=== PATIENT | female | born 1940 | race Caucasian/White ===

== ENCOUNTER 2021-11-15 12:50 | Outpatient (CLI) | payer MEDICARE, OTHER | END 2021-11-15 12:51 | disposition EMS.NT | LOC: EMS 12:50 | DX: R53.1 Weakness (principal); R82.90 Unspecified abnormal findings in urine ==

== ENCOUNTER 2021-11-15 13:55 | Inpatient (IN) | payer MEDICARE, OTHER ==
--- NOTE | 2021-11-15 14:24 | ED Physician Documentation ---
PD HPI DYSPNEA - Stated complaint Stated Complaint: DARK URINELEG SWELLING - Chief complaint Chief Complaint: Resp - History obtained from History obtained from: Patient - History of Present Illness Timing - onset: How many days ago (several days to a week of dyspnea, orthopnea, inceasing edema, and general weakness. Has some ZIEGLER for months but not the edema.) Timing - onset during: Light activity Timing - duration: Days Timing - details: Gradual onset, Still present Inciting event(s): Other (previously on metoprolol for atrial fib. Stopped it 6 months ago as HR controlled. Moved from [place] to [facility] 6 months ago and has not had refill of meds. No prior diuretics.). No: Out of meds Improved by: Rest, Sitting up Worsened by: Exertion, Laying flat Associated symptoms: Palpitations (feeling heart rate fast intermittently.), Bilateral edema. No: Fever, Cough, Chest pain / discomfort, Unilateral edema Recently seen: Not recently seen (has not gotten new primary care since moving to [facility] 6 months ago.) Review of Systems Constitutional: denies: Fever, Chills Nose: denies: Rhinorrhea / runny nose, Congestion Throat: denies: Sore throat Cardiac: reports: Palpitations, Pedal edema (for the past week or so). denies: Chest pain / pressure, Calf pain Respiratory: reports: Dyspnea (progressive the past month). denies: Cough GI: denies: Abdominal Pain, Nausea, Vomiting, Diarrhea, Bloody / black stool : denies: Dysuria Skin: denies: Rash Neurologic: reports: Generalized weakness. denies: Near syncope PD PAST MEDICAL HISTORY - Past Medical History Cardiovascular: Coronary artery disease (with 2 stents placed in 2014 at [facility] in [facility] before she moved to [place]. ), Atrial fibrillation Respiratory: None Neuro: None Endocrine/Autoimmune: None GI: None - Past Surgical History Cardiovascular: Coronary stent - Allergies Allergies/Adverse Reactions: Allergies Allergy/AdvReac Type Severity Reaction Status Date / Time Penicillins Allergy Unknown Verified 11/15/21 14:07 povidone-iodine Allergy Rash Verified 11/15/21 14:07 [From Betadine] - Living Situation Living Situation: reports: With family (she has lived with her daughter for 6 months. Pt states her daughter has high salt foods in house. ) Living Arrangement: reports: At home - Social History Does the pt smoke?: No Does the pt drink ETOH?: No Does the pt have substance abuse?: No - Family History Family history: reports: CAD - POLST Patient has POLST: No PD ED PE NORMAL - Vitals Vital signs reviewed: Yes (fast and irregular heart rate. ) - General General: Alert and oriented X 3, Well developed/nourished, Other (appears anxious and with tachypnea, wanting to sit upright for breathing. ) - HEENT HEENT: Atraumatic, Pharynx benign - Neck Neck: Supple, no meningeal sign, No adenopathy, No bruit, Other (JVD noted at 60 degrees. Patient most comfortable sitting upright. ) - Cardiac Cardiac: No: RRR (irregular and tachycardic 130s. ) - Respiratory Respiratory: No: Clear bilaterally (fine crackles both lung fierro 1/[address] up. No coarse sounds. ) - Abdomen Abdomen: Soft, Non tender - Back Back: No CVA TTP - Derm Derm: Normal color, Warm and dry - Extremities Extremities: No tenderness to palpate, Normal ROM s pain, Other (2+ edema in both lower legs up to the knees. No redness. ) - Neuro Neuro: Alert and oriented X 3, No motor deficit, Normal speech Results - Vitals Vitals: Vital Signs - 24 hr 11/15/21 11/15/21 11/15/21 14:00 15:23 17:00 Temperature 36.4 C L Heart Rate 124 H 100 87 Respiratory 28 H 22 29 H Rate Blood Pressure 118/98 H 128/98 H 152/109 H O2 Saturation 97 97 96 Oxygen O2 Source Room air - EKG (time done) 14:55 Rate: Rate (enter#) (126) Rhythm: Atrial fibrillation Intervals: LBBB Ischemia: ST elevation c/w repol Compare to prior EKG: Old EKG unavailable 15:36 Rate: Rate (enter#) (80) Rhythm: NSR Intervals: LBBB Ischemia: ST elevation c/w repol, Non specific changes Compare to prior EKG: Changed from prior EKG (converted to NSR) - Labs Labs: Laboratory Tests 11/15/21 11/15/21 11/15/21 15:04 15:04 15:04 WBC 8.4 RBC 5.53 H Hgb 14.3 Hct 45.6 MCV 82.5 MCH 25.9 L MCHC 31.4 L RDW 17.1 H Plt Count 248 MPV 10.4 Neut # (Auto) 6.6 Lymph # (Auto) 1.3 L Reynolds # (Auto) 0.4 Eos # (Auto) 0.1 Baso # (Auto) 0.0 Absolute Nucleated RBC 0.00 Nucleated RBC % 0.0 Sodium 136 Potassium 3.8 Chloride 100 L Carbon Dioxide 22 Anion Gap 14.0 H BUN 27 H Creatinine 1.3 H Estimated GFR (MDRD) 39 L Glucose 211 H Calcium 9.0 Magnesium 2.5 Total Bilirubin 1.5 H AST 28 ALT 26 Alkaline Phosphatase 16 L Troponin I High Sens 59.9 H* B-Natriuretic Peptide Total Protein 6.9 Albumin 3.9 Globulin 3.0 Albumin/Globulin Ratio 1.3 Lipase 26 TSH Urine Color Urine Clarity Urine pH Ur Specific [place] Urine Protein Urine Glucose (UA) Urine Ketones Urine Occult Blood Urine Nitrite Urine Bilirubin Urine Urobilinogen Ur Leukocyte Esterase Urine RBC Urine WBC Ur Squamous Epith Cells Urine Bacteria Ur Microscopic Review Urine Culture Comments 11/15/21 11/15/21 11/15/21 15:04 15:04 16:19 WBC RBC Hgb Hct MCV MCH MCHC RDW Plt Count MPV Neut # (Auto) Lymph # (Auto) Reynolds # (Auto) Eos # (Auto) Baso # (Auto) Absolute Nucleated RBC Nucleated RBC % Sodium Potassium Chloride Carbon Dioxide Anion Gap BUN Creatinine Estimated GFR (MDRD) Glucose Calcium Magnesium Total Bilirubin AST ALT Alkaline Phosphatase Troponin I High Sens B-Natriuretic Peptide 2964 H Total Protein Albumin Globulin Albumin/Globulin Ratio Lipase TSH 3.84 Urine Color YELLOW Urine Clarity HAZY Urine pH 5.0 Ur Specific [place] 1.025 Urine Protein 30 H Urine Glucose (UA) NEGATIVE Urine Ketones NEGATIVE Urine Occult Blood TRACE-INTA Urine Nitrite POSITIVE H Urine Bilirubin NEGATIVE Urine Urobilinogen 0.2 (NORMAL) Ur Leukocyte Esterase NEGATIVE Urine RBC 0-5 Urine WBC 6-10 H Ur Squamous Epith Cells NONE SEEN Urine Bacteria Many H Ur Microscopic Review INDICATED Urine Culture Comments INDICATED 11/15/21 16:31 WBC RBC Hgb Hct MCV MCH MCHC RDW Plt Count MPV Neut # (Auto) Lymph # (Auto) Reynolds # (Auto) Eos # (Auto) Baso # (Auto) Absolute Nucleated RBC Nucleated RBC % Sodium Potassium Chloride Carbon Dioxide Anion Gap BUN Creatinine Estimated GFR (MDRD) Glucose Calcium Magnesium Total Bilirubin AST ALT Alkaline Phosphatase Troponin I High Sens 65.7 H* B-Natriuretic Peptide Total Protein Albumin Globulin Albumin/Globulin Ratio Lipase TSH Urine Color Urine Clarity Urine pH Ur Specific [place] Urine Protein Urine Glucose (UA) Urine Ketones Urine Occult Blood Urine Nitrite Urine Bilirubin Urine Urobilinogen Ur Leukocyte Esterase Urine RBC Urine WBC Ur Squamous Epith Cells Urine Bacteria Ur Microscopic Review Urine Culture Comments - Rads (name of study) chest xray Radiology: Prelim report reviewed (interstitial changes c/w CHF), See rad report PD MEDICAL DECISION MAKING - ED course Complexity details: reviewed results, re-evaluated patient (improved breathing and symptoms with heart rate control and diuresis initiated. HR now 80s NSR.), considered differential, d/w patient, d/w technology consultant (Dr. Mcmahon, Cardiology livestock auctioneer [facility] - who said he would advise beta tessa, diuretic and OBS, with ECHO tomorrow. If EF<40%, then call them for advise/possible transfer. If >40-45%, then outpatient meds betablocker/diuretic, DOAC, and Cardiology outpt.) - Critical Care Time(min): 30 Comments: Had fast heart rate atrial fibrillation. Her oxygenation was good but had significant respiratory distress with some work of breathing and upright sitting. IV medications given for heart rate control and acute diuresis. Time Includes: Direct patient care, Document care, Coordinate care Data interpretation: Labs, Pulse ox, CXR Procedures excluded from critical care time: EKG Departure - Departure Disposition: ED Place in Observation Clinical Impression: Paroxysmal atrial fibrillation with rapid ventricular response, New onset of congestive heart failure Dyspnea Qualifiers: Dyspnea type: orthopnea Qualified Code(s): R06.01 - Orthopnea Condition: Stable Record reviewed to determine appropriate education?: Yes Follow-Up: Braulio Duncan MD [Physician No Access] -
[2021-11-15] MEDS ORDERED: FUROSEMIDE 40 MG/4 ML VIAL IVP STA (14:51)
[2021-11-15] MEDS ORDERED: METOPROLOL 5 MG/5 ML VIAL IVP STA (14:55)
[2021-11-15 15:08] LABS: BASOPHILS % (AUTO) 0.4 %; EOSINOPHILS # (AUTO) 0.1 10^3/uL (0.0-0.7); EOSINOPHILS % (AUTO) 0.8 %; HCT - HEMATOCRIT 45.6 % (37.0-47.0); HGB - HEMOGLOBIN 14.3 g/dL (12.0-16.0); LYMPHOCYTES # (AUTO) 1.3 10^3/uL (1.5-3.5); LYMPHOCYTES % (AUTO) 15.5 %; MEAN CORPUSCULAR HEMOGLOBIN 25.9 pg (27.0-31.0); MEAN CORPUSCULAR HGB CONC 31.4 g/dL (32.0-36.0); MEAN CORPUSCULAR VOLUME 82.5 fL (81.0-99.0); MEAN PLATELET VOLUME 10.4 fL (7.9-10.8); MONOCYTES # (AUTO) 0.4 10^3/uL (0.0-1.0); MONOCYTES % (AUTO) 4.8 %; NEUTROPHILS # (AUTO) 6.6 10^3/uL (1.5-6.6); PLT - PLATELET COUNT 248 10^3/uL (130-450); RED BLOOD COUNT 5.53 10^6/uL (4.20-5.40); RED CELL DISTRIBUTION WIDTH 17.1 % (12.0-15.0); WHITE BLOOD COUNT 8.4 x10^3/uL (4.8-10.8)
--- NOTE | 2021-11-15 15:28 | XRAY Report ---
PROCEDURE: Chest 1 View X-Ray INDICATIONS: Chest pain. TECHNIQUE: One view of the chest was acquired. COMPARISON: None FINDINGS: Surgical changes and devices: None. Lungs and pleura: Bilateral interstitial prominence. No focal consolidation or pleural effusion. No pneumothorax. Lungs are clear. Mediastinum: Mediastinal contours appear normal. Heart size is normal. Moderate aortic calcificati on. Bones and chest wall: No suspicious bony lesions. Overlying soft tissues appear unremarkable. IMPRESSION: 1. Bilateral interstitial prominence may be secondary to mild pulmonary edema or chronic interstitial lung disease. Reviewed by: Renee Campos MD on 11/15/2021 3:27 PM PST Approved by: Renee Campos MD on 11/15/2021 3:27 PM PST Station ID: [id number]
[2021-11-15 15:31] LABS: ALBUMIN 3.9 g/dL (3.2-5.5); ALBUMIN/GLOBULIN RATIO 1.3 (1.0-2.2); BILIRUBIN,TOTAL 1.5 mg/dL (0.2-1.0); CREATININE 1.3 mg/dL (0.4-1.0); MAGNESIUM 2.5 mg/dL (1.7-2.8); POTASSIUM 3.8 mmol/L (3.5-5.0); TOTAL PROTEIN 6.9 g/dL (6.7-8.2)
[2021-11-15 16:28] LABS: BILIRUBIN,URINE NEGATIVE (NEGATIVE); GLUCOSE, URINE (UA) NEGATIVE (NEGATIVE); KETONES,URINE (UA) NEGATIVE (NEGATIVE); LEUKOCYTE ESTERASE, URINE NEGATIVE (NEGATIVE); NITRITE,URINE POSITIVE (NEGATIVE); OCCULT BLOOD,URINE TRACE-INTA (NEGATIVE); PROTEIN,URINE 30 mg/dL (NEGATIVE); UROBILINOGEN,URINE 0.2 (NORMAL) E.U./dL (NORMAL)
[2021-11-15 16:33] LABS: CLARITY,URINE HAZY (CLEAR)
[2021-11-15 16:43] LABS: BACTERIA,URINE Many /HPF (None Seen); RBC,URINE 0-5 /HPF (0-5); SQUAMOUS EPITHELIAL CELL,UR NONE SEEN (<= Few)
[2021-11-15] MEDS ORDERED: METOPROLOL SUCCINATE 25 MG TABLET PO STA (17:28)
[2021-11-15] MEDS ORDERED: ASPIRIN CHEW 81 MG TABLET PO STA (17:28)
[2021-11-15 17:38] LABS: B. PARAPERTUSSIS- RESP PCR PAN NOT DETECTED; B. PERTUSSIS- RESP PCR PANEL NOT DETECTED; C. PNEUMONIAE- RESP PCR PANEL NOT DETECTED; CORONAVIRUS 229E-RESP PCR NOT DETECTED; CORONAVIRUS HKU1-RESP PCR NOT DETECTED; CORONAVIRUS NL63-RESP PCR NOT DETECTED; CORONAVIRUS OC43-RESP PCR NOT DETECTED; HUMAN METAPNEUMOVIRUS NOT DETECTED; INFLUENZA A- RESP PCR PANEL NOT DETECTED; INFLUENZA B - RESP PCR PANEL NOT DETECTED; M. PNEUMONIAE- RESP PCR PANEL NOT DETECTED; PARAINFLUENZA VIRUS 1 NOT DETECTED; PARAINFLUENZA VIRUS 2 NOT DETECTED; PARAINFLUENZA VIRUS 3 NOT DETECTED; PARAINFLUENZA VIRUS 4 NOT DETECTED; RHINOVIRUS/ENTEROVIRUS NOT DETECTED; RSV- RESP PCR PANEL NOT DETECTED; SARS-CoV-2 -RESP PCR PANEL NOT DETECTED
--- NOTE | 2021-11-15 20:14 | HISTORY & PHYSICAL EXAMINATION ---
Chief Complaint - Chief Complaint Chief Complaint: SOB, leg edema, palpitations History of Present Illness - Admitted From Admitted From:: ED - History Obtained From History obtained from: ED provider and the patient - History of Present Illness HPI Comment/Other: This is an 81 y/o female, who moved from [place] to [facility] to live with her daughter 6 mos ago. She has not yet established with a PCP. She has a Hx of coronary artery disease (with 2 stents placed in 2014 at [facility] in [facility], by Dr Dorantes, before she moved to [place]. ). Mikael also has a history of paroxysmal Afib and used to be on Metoprolol, but said her last PCP stopped it 6 mos ago. She only takes 1 baby aspirin daily. Over the past 2 mos, she has felt intermittent rapid palpitations and has progressively worsening SOB with activity. Over the past 2-3 days she is also orthopneic and has new leg edema, bad enough that she cannot bend her knees, and therefore she presented to the ED. She reported that her diet, made by her daughter, contains alot of salt. She denies any chest pain, cough or fever. There is no pain in her legs. She was given IV Lasix and started to have diuresis and says she feels slightly better. She was also found to be in A. fib with RVR at a rate of 120. We discussed her CODE BLUE wishes and she wants to be a Full Code. History - Past Medical History Cardiovascular: reports: Coronary artery disease (with 2 stents placed in 2014 at [facility] in [facility] before she moved to [place]. 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 Pt states her daughter has high salt foods in house. ) Social History Notes: She has 3 daughters who she raised alone. The oldest is in [place], the second is in [place], with whom she lived for 5 years to help her, then she moved back in with her youngest daughter here 6 months ago, to help her financially through a divorce. She reports that she gets no help from the daughter or granddaughter (13 y/o) and wants to move out of that house. She never smoked cigarettes, drinks no alcohol, and no drug use. - Substance History Use: Uses substance without health or social issues: NONE - POLST Patient has POLST: No Meds/Allgy - Allergies Allergies/Adverse Reactions: Allergies Allergy/AdvReac Type Severity Reaction Status Date / Time Penicillins Allergy Unknown Verified 11/15/21 14:07 povidone-iodine Allergy Rash Verified 11/15/21 14:07 [From Betadine] Review of Systems - Constitutional Constitutional: reports: Weakness - Cardiovascular Cariovascular: reports: Palpitations, Edema, Orthopnea - Respiratory Respiratory: reports: SOB at rest, SOB with exertion - All Other Systems All Other Systems: reports: Reviewed and negative Exam - Vital Signs Vital Signs: Vital Signs x48h Temp Pulse Pulse Resp BP BP Pulse Ox 11/15/21 19:19 36.6 C 81 22 132/93 H 98 11/15/21 19:00 69 25 H 136/87 H 96 11/15/21 17:00 87 29 H 152/109 H 96 11/15/21 15:23 100 22 128/98 H 97 11/15/21 14:00 36.4 C L 124 H 28 H 118/98 H 97 - Physical Exam General Appearance: positive: No acute distress, Alert Eyes Bilateral: positive: Normal inspection, EOMI ENT: positive: No signs of dehydration, Other (Her voice is hoarse and tremulous) Neck: positive: Nml inspection, No JVD Respiratory: positive: Rales (At both lower bases) Cardiovascular: positive: Regular rate & rhythm, No murmur Abdomen: positive: Non-tender, Nml bowel sounds, No distention Skin: positive: Warm, Dry Extremities: positive: Non-tender, Other (4+ edema to the posterior thighs) Neurologic/Psychiatric: positive: Oriented x3, Other (She has a tremor of her voice and an intentional tremor of her hands.) Conclusion/Plan - Problem List (1) Paroxysmal atrial fibrillation with rapid ventricular response Conclusion/Plan: Her TSH has ruled her out for Hyperthyroidism. We are cycling troponins to check for acute coronary syndrome causing the afib. Place on telemetry. Continue B-tessa for rate control. Will start therapeutic dose Lovenox, given that her CHADS score is 2 (age>75 and has CHF). She will be a candidate for DOAC [facility], however, Dr Mcmahon recomm ended not to start a DOAC, in case she needs transfer and interventions. She has converted, unexpectedly to sinus rhythm, confirmed by an EKG. (2) New onset of congestive heart failure Conclusion/Plan: She is volume overloaded and the BNP of >2000, and the LBBB on EKG, suggests she probably has systolic heart failure, possibly tachycardia-induced cardiomyop athy, given the Hx of feeling palpitations and presenting in Afib with RVR. Will continue iv bid diuretic. Follow I's and O's and daily weights. Order low salt, cardiac diet. Nutrition consult for CHF teaching will be requested, and the daughter who uses alot of salt, needs this training too. Will treat the rapid rate and her CHF using a B-tessa. Obtain an Echo. If EF <40% we will also start RADHA or ARB and Spironolactone. Dr Mcmahon, Continuous Process [employer]anner at [facility], who our ED provider spoke to, said to contact him for transfer if EF found to be <40%, otherwise outpatient cardiac W/U can be done. But she will need our [facility] RN to help her establish with a PCP. (3) JOSEPH (acute kidney injury) Conclusion/Plan: She has elevated BUN/creat which could be related to high central venous pressure, i.e. Cardio-renal syndrome. This should improve with diuresis theref ore. Avoid nephrotoxins. Follow BMP and Mg daily. (4) LBBB (left bundle branch block) Conclusion/Plan: We have no old EKG for comparison, to know if her LBBB is of new onset. However, systolic heart failure is highly likely, when LBBB is present. Await the Echo, ordered for a.m. (5) Hx of coronary artery disease Conclusion/Plan: She had coronary stenting in 2014. Will resume any other usual meds when they are reconciled by Pharmacy. Will check a fasting lipid panel and treat per guidelines. (6) Social problem Conclusion/Plan: This patient reported several examples that make her feel unsafe living with this daughter: The daughter makes food using excessive salt, while knowing the mother needs a low salt diet. The patient cannot go out and get her own food to make a low-salt diet. The patient has asked the daughter for the past 48 hours to take her into the ED, because she cannot breath, and the daughter responded "if you have no PCP, they will not see you in an emergency room". Her 13-year-old granddaughter, changes the settings on the patient's iPhone, in order to prevent the patient to use it, so it took the patient 2 hours to contact her medical insurance. The patient called her medical insurance company and reported her symptoms and the nurse on the phone advised her to go to the ED and the nurse on the phone also called an ambulance. The ambulance arrived and the daughter was surprised and tried to back out of being guilty in not taking her mother to the ED as she had requested, stating "Well, I am not dressed yet". But the ED show horse driver waited to make sure that the daughter would transport the patient to the ED. The daughter tells the neighbors that the "the patient is crazy". Her daughters all want her to be admitted to "a facility". Will request a SW consult. - Lab Results Fish Bones: 11/15/21 15:04 11/15/21 15:04 - Diagnostic Imaging Results Diagnostic Imaging Results: positive: Final report reviewed - Other Other Results/Comments: Attestation: The patient is expected to be discharged or transferred to another facility within 96 hours: Yes.
[2021-11-15] MEDS: ENOXAPARIN 100 MG/ML SYRINGE SUBQ SCH (21:16)
[2021-11-16] MEDS: SODIUM CHLORIDE FLUSH 0.9% 10 ML SYRINGE IVP SCH ×4 (01:52→23:39)
[2021-11-16] MEDS ORDERED: FUROSEMIDE 20 MG/2 ML VIAL IVP SCH (06:00)
[2021-11-16 06:11] LABS: BASOPHILS # (AUTO) 0.1 10^3/uL (0.0-0.1); BASOPHILS % (AUTO) 0.6 %; EOSINOPHILS # (AUTO) 0.1 10^3/uL (0.0-0.7); EOSINOPHILS % (AUTO) 1.4 %; HCT - HEMATOCRIT 47.2 % (37.0-47.0); HGB - HEMOGLOBIN 14.6 g/dL (12.0-16.0); LYMPHOCYTES # (AUTO) 3.8 10^3/uL (1.5-3.5); LYMPHOCYTES % (AUTO) 37.9 %; MEAN CORPUSCULAR HEMOGLOBIN 25.5 pg (27.0-31.0); MEAN CORPUSCULAR HGB CONC 30.9 g/dL (32.0-36.0); MEAN CORPUSCULAR VOLUME 82.4 fL (81.0-99.0); MEAN PLATELET VOLUME 10.5 fL (7.9-10.8); MONOCYTES # (AUTO) 0.6 10^3/uL (0.0-1.0); MONOCYTES % (AUTO) 5.5 %; NEUTROPHILS # (AUTO) 5.4 10^3/uL (1.5-6.6); NEUTROPHILS % (AUTO) 54.3 %; PLT - PLATELET COUNT 268 10^3/uL (130-450); RED BLOOD COUNT 5.73 10^6/uL (4.20-5.40); RED CELL DISTRIBUTION WIDTH 17.5 % (12.0-15.0)
[2021-11-16 06:22] LABS: CREATININE 1.5 mg/dL (0.4-1.0); POTASSIUM 3.4 mmol/L (3.5-5.0)
[2021-11-16 06:32] LABS: CHOL/HDL RATIO 4.5 (<4.4); CHOLESTEROL 144 mg/dL; HDL CHOLESTEROL 32 mg/dL; LDL CHOLESTEROL,CALCULATED 97 mg/dL; TRIGLYCERIDES 76 mg/dL; VLDL CHOLESTEROL 15 mg/dL
[2021-11-16] MEDS: SODIUM CHLORIDE FLUSH 0.9% 10 ML SYRINGE IVP PRN (06:44)
[2021-11-16] MEDS ORDERED: POTASSIUM CHLORIDE 20 MEQ TABLET PO ONE (07:26)
--- NOTE | 2021-11-16 08:33 | PROVIDER PROGRESS NOTE ---
Subjective - Prog Note Date Prog Note Date: 11/16/21 - Subjective Subjective: She feels much improved compared to yesterday. Still feels short of breath with activity but is able to at least ambulate to the bathroom. She denies any chest pain. Her lower extremity edema is improved. Current Medications - Current Medications Current Medications: Active Medications Acetaminophen (Acetaminophen 325 Mg Tablet) 650 mg PO Q4HR PRN PRN Reason: Pain 1 to 4 Aspirin (Aspirin Chew 81 Mg Tablet) 81 mg PO DAILY [facility] Last Admin: 11/16/21 09:16 Dose: 81 mg Documented by: Enoxaparin Sodium (Enoxaparin 80 Mg/0.8 Ml Syringe) 70 mg SUBQ BID [facility] Furosemide (Furosemide 40 Mg/4 Ml Vial) 60 mg IVP DAILY [facility] Last Admin: 11/16/21 09:18 Dose: 60 mg Documented by: Metoprolol Succinate (Metoprolol Succinate 25 Mg Tablet) 25 mg PO DAILY [facility] Last Admin: 11/16/21 09:17 Dose: 25 mg Documented by: Ondansetron HCl (Ondansetron 4 Mg/2 Ml Vial) 4 mg IVP Q6HR PRN PRN Reason: Nausea / Vomiting Sodium Chloride (Sodium Chloride Flush 0.9% 10 Ml Syringe) 10 ml IVP PRN PRN PRN Reason: NEEDED PER PROVIDER ORDERS Last Admin: 11/16/21 06:44 Dose: 10 ml Documented by: Sodium Chloride (Sodium Chloride Flush 0.9% 10 Ml Syringe) 10 ml IVP 0100,0900,1700 [facility] Last Admin: 11/16/21 09:17 Dose: 10 ml Documented by: Objective - Vital Signs/Intake & Output Reviewed Vital Signs: Yes Vital Signs: Vital Signs x48h Temp Pulse Resp BP Pulse Ox 11/16/21 07:42 36.4 C L 91 18 144/84 H 98 11/16/21 05:59 36.4 C L 93 18 151/85 H 95 11/16/21 00:40 36.5 C 55 L 19 127/74 96 Intake & Output: Intake & Output 11/13/21 11/14/21 11/15/21 11/16/21 23:59 23:59 23:59 23:59 Intake Total 240 75 Output Total 600 900 Balance -360 -825 - Objective General Appearance: positive: No acute distress, Alert Eyes Bilateral: positive: Normal inspection, Conjunctivae nml ENT: positive: ENT inspection nml Neck: positive: Nml inspection Respiratory: positive: No respiratory distress, Other (Crackles bilaterally.) Cardiovascular: positive: Regular rate & rhythm. negative: Irregularly irregular, Tachycardia, Systolic murmur Abdomen: positive: Non-tender, No distention. negative: Tenderness Skin: positive: Warm, Dry Extremities: positive: Pedal edema (+2 edema in bilateral lower extremities.) Neurologic/Psychiatric: positive: Motor nml. negative: Disoriented to person, Disoriented to place - Lab Results Fish Bones: 11/16/21 06:01 11/16/21 06:01 Other Labs: Lab Results x24hrs 11/16/21 11/16/21 11/16/21 Range/Units 07:50 06:01 06:01 WBC (4.8-10.8) x10^3/uL RBC (4.20-5.40) 10^6/uL Hgb (12.0-16.0) g/dL Hct (37.0-47.0) % MCV (81.0-99.0) fL MCH (27.0-31.0) pg MCHC (32.0-36.0) g/dL RDW (12.0-15.0) % Plt Count (130-450) 10^3/uL MPV (7.9-10.8) fL Neut # (Auto) (1.5-6.6) 10^3/uL Lymph # (Auto) (1.5-3.5) 10^3/uL [place] # (Auto) (0.0-1.0) 10^3/uL Eos # (Auto) (0.0-0.7) 10^3/uL Baso # (Auto) (0.0-0.1) 10^3/uL Absolute Nucleated RBC x10^3/uL Nucleated RBC % /100WBC Sodium (135-145) mmol/L Potassium (3.5-5.0) mmol/L Chloride (101-111) mmol/L Carbon Dioxide (21-32) mmol/L Anion Gap (6-13) BUN (6-20) mg/dL Creatinine (0.4-1.0) mg/dL Estimated GFR (MDRD) (>89) Glucose (70-100) mg/dL Calcium (8.5-10.3) mg/dL Magnesium (1.7-2.8) mg/dL Total Bilirubin (0.2-1.0) mg/dL AST (10-42) IU/L ALT (10-60) IU/L Alkaline Phosphatase (42-121) IU/L Troponin I High Sens 63.6 H* (2.3-14.8) ng/L B-Natriuretic Peptide 6553.00 H (5-100) pg/mL Total Protein (6.7-8.2) g/dL Albumin (3.2-5.5) g/dL Globulin (2.1-4.2) g/dL Albumin/Globulin Ratio (1.0-2.2) Triglycerides 76 ( - 149) mg/dL Cholesterol 144 ( - 199) mg/dL LDL Cholesterol, Calc 97 ( - 129) mg/dL VLDL Cholesterol 15 mg/dL HDL Cholesterol 32 L (60 - ) mg/dL LDL/HDL Ratio 3.0 (<4.4) Cholesterol/HDL Ratio 4.5 (<4.4) Lipase (22-51) U/L TSH (0.34-5.60) uIU/mL Urine Color Urine Clarity (CLEAR) Urine pH (5.0-7.5) PH Ur Specific [place] (1.002-1.030) Urine Protein (NEGATIVE) mg/dL Urine Glucose (UA) (NEGATIVE) mg/dL Urine Ketones (NEGATIVE) mg/dL Urine Occult Blood (NEGATIVE) Urine Nitrite (NEGATIVE) Urine Bilirubin (NEGATIVE) Urine Urobilinogen (NORMAL) E.U./dL Ur Leukocyte Esterase (NEGATIVE) Urine RBC (0-5) /HPF Urine WBC (0-5) /HPF Ur Squamous Epith Cells (<= Few) Urine Bacteria (None Seen) /HPF Ur Microscopic Review Urine Culture Comments Nasal Adenovirus (PCR) Nasal B. parapertussis DNA (PCR) Nasal Coronavir 229E PCR Nasal Coronavir HKU1 PCR Nasal Coronavir NL63 PCR Nasal Coronavir OC43 PCR Nasal Enterovir/Rhinovir PCR Nasal Influenza B PCR Nasal Influenza A PCR Nasal Parainfluen 1 PCR Nasal Parainfluen 2 PCR Nasal Parainfluen 3 PCR Nasal Parainfluen 4 PCR Nasal RSV (PCR) Nasal B.pertussis DNA PCR Nasal C.pneumoniae (PCR) Kali Human Metapneumo PCR Nasal M.pneumoniae (PCR) Nasal SARS-CoV-2 (PCR) 11/16/21 11/16/21 11/15/21 Range/Units 06:01 06:01 22:25 WBC 10.0 (4.8-10.8) x10^3/uL RBC 5.73 H (4.20-5.40) 10^6/uL Hgb 14.6 (12.0-16.0) g/dL Hct 47.2 H (37.0-47.0) % MCV 82.4 (81.0-99.0) fL MCH 25.5 L (27.0-31.0) pg MCHC 30.9 L (32.0-36.0) g/dL RDW 17.5 H (12.0-15.0) % Plt Count 268 (130-450) 10^3/uL MPV 10.5 (7.9-10.8) fL Neut # (Auto) 5.4 (1.5-6.6) 10^3/uL Lymph # (Auto) 3.8 H (1.5-3.5) 10^3/uL [place] # (Auto) 0.6 (0.0-1.0) 10^3/uL Eos # (Auto) 0.1 (0.0-0.7) 10^3/uL Baso # (Auto) 0.1 (0.0-0.1) 10^3/uL Absolute Nucleated RBC 0.00 x10^3/uL Nucleated RBC % 0.0 /100WBC Sodium 137 (135-145) mmol/L Potassium 3.4 L (3.5-5.0) mmol/L Chloride 99 L (101-111) mmol/L Carbon Dioxide 24 (21-32) mmol/L Anion Gap 14.0 H (6-13) BUN 26 H (6-20) mg/dL Creatinine 1.5 H (0.4-1.0) mg/dL Estimated GFR (MDRD) 33 L (>89) Glucose 126 H (70-100) mg/dL Calcium 9.0 (8.5-10.3) mg/dL Magnesium (1.7-2.8) mg/dL Total Bilirubin (0.2-1.0) mg/dL AST (10-42) IU/L ALT (10-60) IU/L Alkaline Phosphatase (42-121) IU/L Troponin I High Sens 83.0 H* (2.3-14.8) ng/L B-Natriuretic Peptide (5-100) pg/mL Total Protein (6.7-8.2) g/dL Albumin (3.2-5.5) g/dL Globulin (2.1-4.2) g/dL Albumin/Globulin Ratio (1.0-2.2) Triglycerides ( - 149) mg/dL Cholesterol ( - 199) mg/dL LDL Cholesterol, Calc ( - 129) mg/dL VLDL Cholesterol mg/dL HDL Cholesterol (60 - ) mg/dL LDL/HDL Ratio (<4.4) Cholesterol/HDL Ratio (<4.4) Lipase (22-51) U/L TSH (0.34-5.60) uIU/mL Urine Color Urine Clarity (CLEAR) Urine pH (5.0-7.5) PH Ur Specific [place] (1.002-1.030) Urine Protein (NEGATIVE) mg/dL Urine Glucose (UA) (NEGATIVE) mg/dL Urine Ketones (NEGATIVE) mg/dL Urine Occult Blood (NEGATIVE) Urine Nitrite (NEGATIVE) Urine Bilirubin (NEGATIVE) Urine Urobilinogen (NORMAL) E.U./dL Ur Leukocyte Esterase (NEGATIVE) Urine RBC (0-5) /HPF Urine WBC (0-5) /HPF Ur Squamous Epith Cells (<= Few) Urine Bacteria (None Seen) /HPF Ur Microscopic Review Urine Culture Comments Nasal Adenovirus (PCR) Nasal B. parapertussis DNA (PCR) Nasal Coronavir 229E PCR Nasal Coronavir HKU1 PCR Nasal Coronavir NL63 PCR Nasal Coronavir OC43 PCR Nasal Enterovir/Rhinovir PCR Nasal Influenza B PCR Nasal Influenza A PCR Nasal Parainfluen 1 PCR Nasal Parainfluen 2 PCR Nasal Parainfluen 3 PCR Nasal Parainfluen 4 PCR Nasal RSV (PCR) Nasal B.pertussis DNA PCR Nasal C.pneumoniae (PCR) Kali Human Metapneumo PCR Nasal M.pneumoniae (PCR) Nasal SARS-CoV-2 (PCR) 11/15/21 11/15/21 11/15/21 Range/Units 16:31 16:19 15:50 WBC (4.8-10.8) x10^3/uL RBC (4.20-5.40) 10^6/uL Hgb (12.0-16.0) g/dL Hct (37.0-47.0) % MCV (81.0-99.0) fL MCH (27.0-31.0) pg MCHC (32.0-36.0) g/dL RDW (12.0-15.0) % Plt Count (130-450) 10^3/uL MPV (7.9-10.8) fL Neut # (Auto) (1.5-6.6) 10^3/uL Lymph # (Auto) (1.5-3.5) 10^3/uL [place] # (Auto) (0.0-1.0) 10^3/uL Eos # (Auto) (0.0-0.7) 10^3/uL Baso # (Auto) (0.0-0.1) 10^3/uL Absolute Nucleated RBC x10^3/uL Nucleated RBC % /100WBC Sodium (135-145) mmol/L Potassium (3.5-5.0) mmol/L Chloride (101-111) mmol/L Carbon Dioxide (21-32) mmol/L Anion Gap (6-13) BUN (6-20) mg/dL Creatinine (0.4-1.0) mg/dL Estimated GFR (MDRD) (>89) Glucose (70-100) mg/dL Calcium (8.5-10.3) mg/dL Magnesium (1.7-2.8) mg/dL Total Bilirubin (0.2-1.0) mg/dL AST (10-42) IU/L ALT (10-60) IU/L Alkaline Phosphatase (42-121) IU/L Troponin I High Sens 65.7 H* (2.3-14.8) ng/L B-Natriuretic Peptide (5-100) pg/mL Total Protein (6.7-8.2) g/dL Albumin (3.2-5.5) g/dL Globulin (2.1-4.2) g/dL Albumin/Globulin Ratio (1.0-2.2) Triglycerides ( - 149) mg/dL Cholesterol ( - 199) mg/dL LDL Cholesterol, Calc ( - 129) mg/dL VLDL Cholesterol mg/dL HDL Cholesterol (60 - ) mg/dL LDL/HDL Ratio (<4.4) Cholesterol/HDL Ratio (<4.4) Lipase (22-51) U/L TSH (0.34-5.60) uIU/mL Urine Color YELLOW Urine Clarity HAZY (CLEAR) Urine pH 5.0 (5.0-7.5) PH Ur Specific [place] 1.025 (1.002-1.030) Urine Protein 30 H (NEGATIVE) mg/dL Urine Glucose (UA) NEGATIVE (NEGATIVE) mg/dL Urine Ketones NEGATIVE (NEGATIVE) mg/dL Urine Occult Blood TRACE-INTA (NEGATIVE) Urine Nitrite POSITIVE H (NEGATIVE) Urine Bilirubin NEGATIVE (NEGATIVE) Urine Urobilinogen 0.2 (NORMAL) (NORMAL) E.U./dL Ur Leukocyte Esterase NEGATIVE (NEGATIVE) Urine RBC 0-5 (0-5) /HPF Urine WBC 6-10 H (0-5) /HPF Ur Squamous Epith Cells NONE SEEN (<= Few) Urine Bacteria Many H (None Seen) /HPF Ur Microscopic Review INDICATED Urine Culture Comments INDICATED Nasal Adenovirus (PCR) NOT DETECTED Nasal B. parapertussis DNA (PCR) NOT DETECTED Nasal Coronavir 229E PCR NOT DETECTED Nasal Coronavir HKU1 PCR NOT DETECTED Nasal Coronavir NL63 PCR NOT DETECTED Nasal Coronavir OC43 PCR NOT DETECTED Nasal Enterovir/Rhinovir PCR NOT DETECTED Nasal Influenza B PCR NOT DETECTED Nasal Influenza A PCR NOT DETECTED Nasal Parainfluen 1 PCR NOT DETECTED Nasal Parainfluen 2 PCR NOT DETECTED Nasal Parainfluen 3 PCR NOT DETECTED Nasal Parainfluen 4 PCR NOT DETECTED Nasal RSV (PCR) NOT DETECTED Nasal B.pertussis DNA PCR NOT DETECTED Nasal C.pneumoniae (PCR) NOT DETECTED Kali Human Metapneumo PCR NOT DETECTED Nasal M.pneumoniae (PCR) NOT DETECTED Nasal SARS-CoV-2 (PCR) NOT DETECTED 11/15/21 11/15/21 11/15/21 Range/Units 15:04 15:04 15:04 WBC (4.8-10.8) x10^3/uL RBC (4.20-5.40) 10^6/uL Hgb (12.0-16.0) g/dL Hct (37.0-47.0) % MCV (81.0-99.0) fL MCH (27.0-31.0) pg MCHC (32.0-36.0) g/dL RDW (12.0-15.0) % Plt Count (130-450) 10^3/uL MPV (7.9-10.8) fL Neut # (Auto) (1.5-6.6) 10^3/uL Lymph # (Auto) (1.5-3.5) 10^3/uL [place] # (Auto) (0.0-1.0) 10^3/uL Eos # (Auto) (0.0-0.7) 10^3/uL Baso # (Auto) (0.0-0.1) 10^3/uL Absolute Nucleated RBC x10^3/uL Nucleated RBC % /100WBC Sodium (135-145) mmol/L Potassium (3.5-5.0) mmol/L Chloride (101-111) mmol/L Carbon Dioxide (21-32) mmol/L Anion Gap (6-13) BUN (6-20) mg/dL Creatinine (0.4-1.0) mg/dL Estimated GFR (MDRD) (>89) Glucose (70-100) mg/dL Calcium (8.5-10.3) mg/dL Magnesium (1.7-2.8) mg/dL Total Bilirubin (0.2-1.0) mg/dL AST (10-42) IU/L ALT (10-60) IU/L Alkaline Phosphatase (42-121) IU/L Troponin I High Sens 59.9 H* (2.3-14.8) ng/L B-Natriuretic Peptide 2964 H (5-100) pg/mL Total Protein (6.7-8.2) g/dL Albumin (3.2-5.5) g/dL Globulin (2.1-4.2) g/dL Albumin/Globulin Ratio (1.0-2.2) Triglycerides ( - 149) mg/dL Cholesterol ( - 199) mg/dL LDL Cholesterol, Calc ( - 129) mg/dL VLDL Cholesterol mg/dL HDL Cholesterol (60 - ) mg/dL LDL/HDL Ratio (<4.4) Cholesterol/HDL Ratio (<4.4) Lipase (22-51) U/L TSH 3.84 (0.34-5.60) uIU/mL Urine Color Urine Clarity (CLEAR) Urine pH (5.0-7.5) PH Ur Specific [place] (1.002-1.030) Urine Protein (NEGATIVE) mg/dL Urine Glucose (UA) (NEGATIVE) mg/dL Urine Ketones (NEGATIVE) mg/dL Urine Occult Blood (NEGATIVE) Urine Nitrite (NEGATIVE) Urine Bilirubin (NEGATIVE) Urine Urobilinogen (NORMAL) E.U./dL Ur Leukocyte Esterase (NEGATIVE) Urine RBC (0-5) /HPF Urine WBC (0-5) /HPF Ur Squamous Epith Cells (<= Few) Urine Bacteria (None Seen) /HPF Ur Microscopic Review Urine Culture Comments Nasal Adenovirus (PCR) Nasal B. parapertussis DNA (PCR) Nasal Coronavir 229E PCR Nasal Coronavir HKU1 PCR Nasal Coronavir NL63 PCR Nasal Coronavir OC43 PCR Nasal Enterovir/Rhinovir PCR Nasal Influenza B PCR Nasal Influenza A PCR Nasal Parainfluen 1 PCR Nasal Parainfluen 2 PCR Nasal Parainfluen 3 PCR Nasal Parainfluen 4 PCR Nasal RSV (PCR) Nasal B.pertussis DNA PCR Nasal C.pneumoniae (PCR) Kali Human Metapneumo PCR Nasal M.pneumoniae (PCR) Nasal SARS-CoV-2 (PCR) 11/15/21 11/15/21 Range/Units 15:04 15:04 WBC 8.4 (4.8-10.8) x10^3/uL RBC 5.53 H (4.20-5.40) 10^6/uL Hgb 14.3 (12.0-16.0) g/dL Hct 45.6 (37.0-47.0) % MCV 82.5 (81.0-99.0) fL MCH 25.9 L (27.0-31.0) pg MCHC 31.4 L (32.0-36.0) g/dL RDW 17.1 H (12.0-15.0) % Plt Count 248 (130-450) 10^3/uL MPV 10.4 (7.9-10.8) fL Neut # (Auto) 6.6 (1.5-6.6) 10^3/uL Lymph # (Auto) 1.3 L (1.5-3.5) 10^3/uL [place] # (Auto) 0.4 (0.0-1.0) 10^3/uL Eos # (Auto) 0.1 (0.0-0.7) 10^3/uL Baso # (Auto) 0.0 (0.0-0.1) 10^3/uL Absolute Nucleated RBC 0.00 x10^3/uL Nucleated RBC % 0.0 /100WBC Sodium 136 (135-145) mmol/L Potassium 3.8 (3.5-5.0) mmol/L Chloride 100 L (101-111) mmol/L Carbon Dioxide 22 (21-32) mmol/L Anion Gap 14.0 H (6-13) BUN 27 H (6-20) mg/dL Creatinine 1.3 H (0.4-1.0) mg/dL Estimated GFR (MDRD) 39 L (>89) Glucose 211 H (70-100) mg/dL Calcium 9.0 (8.5-10.3) mg/dL Magnesium 2.5 (1.7-2.8) mg/dL Total Bilirubin 1.5 H (0.2-1.0) mg/dL AST 28 (10-42) IU/L ALT 26 (10-60) IU/L Alkaline Phosphatase 16 L (42-121) IU/L Troponin I High Sens (2.3-14.8) ng/L B-Natriuretic Peptide (5-100) pg/mL Total Protein 6.9 (6.7-8.2) g/dL Albumin 3.9 (3.2-5.5) g/dL Globulin 3.0 (2.1-4.2) g/dL Albumin/Globulin Ratio 1.3 (1.0-2.2) Triglycerides ( - 149) mg/dL Cholesterol ( - 199) mg/dL LDL Cholesterol, Calc ( - 129) mg/dL VLDL Cholesterol mg/dL HDL Cholesterol (60 - ) mg/dL LDL/HDL Ratio (<4.4) Cholesterol/HDL Ratio (<4.4) Lipase 26 (22-51) U/L TSH (0.34-5.60) uIU/mL Urine Color Urine Clarity (CLEAR) Urine pH (5.0-7.5) PH Ur Specific [place] (1.002-1.030) Urine Protein (NEGATIVE) mg/dL Urine Glucose (UA) (NEGATIVE) mg/dL Urine Ketones (NEGATIVE) mg/dL Urine Occult Blood (NEGATIVE) Urine Nitrite (NEGATIVE) Urine Bilirubin (NEGATIVE) Urine Urobilinogen (NORMAL) E.U./dL Ur Leukocyte Esterase (NEGATIVE) Urine RBC (0-5) /HPF Urine WBC (0-5) /HPF Ur Squamous Epith Cells (<= Few) Urine Bacteria (None Seen) /HPF Ur Microscopic Review Urine Culture Comments Nasal Adenovirus (PCR) Nasal B. parapertussis DNA (PCR) Nasal Coronavir 229E PCR Nasal Coronavir HKU1 PCR Nasal Coronavir NL63 PCR Nasal Coronavir OC43 PCR Nasal Enterovir/Rhinovir PCR Nasal Influenza B PCR Nasal Influenza A PCR Nasal Parainfluen 1 PCR Nasal Parainfluen 2 PCR Nasal Parainfluen 3 PCR Nasal Parainfluen 4 PCR Nasal RSV (PCR) Nasal B.pertussis DNA PCR Nasal C.pneumoniae (PCR) Kali Human Metapneumo PCR Nasal M.pneumoniae (PCR) Nasal SARS-CoV-2 (PCR) Assessment/Plan - Problem List (1) Acute combined systolic and diastolic congestive heart failure Impression: Her echocardiogram revealed an ejection fraction of 25% and grade 3 diastolic dysfunction. Clinically she is improved as her edema is improved and she is less dyspneic but she is still in heart failure. Her BNP is over 6000 today. She will still need aggressive IV diuresis and we will continue her on Lasix IV. I have increased the dose to 60 mg IV daily. I did speak with cardiology at [facility] to inform them that her EF was less than 40%. They felt that given she is clinically improving, there is no need for transfer and to just diurese her and put her on appropriate heart failure therapy. They will see her on an outpatient basis within 2 weeks. They did let me know that if she were to develop chest pain or dyspnea that did not improve despite diuresis then transfe r would be warranted. I discussed this with the patient and she is in agreement with the plan. Continue a low-sodium diet. Daily weights. Strict I's and O's. (2) Paroxysmal atrial fibrillation with rapid ventricular response Impression: She is now in a sinus rhythm and is rate controlled. We will continue metoprolol. We will keep her on Lovenox twice daily for the time being. If she continues to show signs of improvement we will switch her to a NOAC. (3) JOSEPH (acute kidney injury) Impression: Her creatinine is elevated at 1.5 and I suspect is likely cardiorenal in nature. We have increased her Lasix to 60 mg IV daily. We will continue to diurese her and start her on lisinopril and spironolactone when appropriate. Continue to monitor her I's and O's. (4) Hx of coronary artery disease Impression: She has a known history of coronary artery disease with stenting in the LAD. We have continued aspirin and we have started her on Lipitor as well. Her troponins were only mildly elevated I suspect this is demand ischemia given the heart failure. (5) LBBB (left bundle branch block) Impression: Do not have an old EKG for comparison but I did let cardiology know that her EKG did reveal a left bundle branch block. They did not appear concerned by this. We will continue medical management of her heart failure as mentioned above.
[2021-11-16] MEDS ORDERED: ENOXAPARIN 40 MG/0.4 ML SYRINGE SUBQ SCH (09:00)
[2021-11-16] MEDS ORDERED: METOPROLOL SUCCINATE 25 MG TABLET PO SCH (09:00)
[2021-11-16] MEDS: ASPIRIN CHEW 81 MG TABLET PO SCH (09:16)
[2021-11-16] MEDS: ENOXAPARIN 100 MG/ML SYRINGE SUBQ SCH (09:16)
[2021-11-16] MEDS: METOPROLOL SUCCINATE 25 MG TABLET PO SCH (09:17)
[2021-11-16] MEDS: FUROSEMIDE 40 MG/4 ML VIAL IVP SCH (09:18)
--- NOTE | 2021-11-16 11:29 | PHARMACY PROGRESS NOTE ---
- Best Possible Medication History Admit Date and Time: 11/15/211802 Processed by: Pharmacy Medication History completed: Yes Patient Interview: Completed As the person ultimately responsible for medication therapy, providers are able to order a medication from an existing home medication list in [facility] via the "Reconcile Routine" prior to Confirmation of that medication by network support administrator. Such practice is discouraged except when the physician, in their clinical dafne gment, deems that a medical need exists for a medication without regard to previous use.
[2021-11-16 16:35] LABS: CALCIUM 8.8 mg/dL (8.5-10.3); CREATININE 1.6 mg/dL (0.4-1.0); POTASSIUM 3.8 mmol/L (3.5-5.0)
[2021-11-16] MEDS: ATORVASTATIN 40 MG TABLET PO SCH (20:20)
[2021-11-16] MEDS: ENOXAPARIN 80 MG/0.8 ML SYRINGE SUBQ SCH (20:20)
[2021-11-17 06:40] LABS: BASOPHILS # (AUTO) 0.1 10^3/uL (0.0-0.1); BASOPHILS % (AUTO) 0.9 %; EOSINOPHILS # (AUTO) 0.2 10^3/uL (0.0-0.7); HCT - HEMATOCRIT 41.8 % (37.0-47.0); HGB - HEMOGLOBIN 13.4 g/dL (12.0-16.0); LYMPHOCYTES # (AUTO) 2.7 10^3/uL (1.5-3.5); LYMPHOCYTES % (AUTO) 32.9 %; MEAN CORPUSCULAR HEMOGLOBIN 25.9 pg (27.0-31.0); MEAN CORPUSCULAR HGB CONC 32.1 g/dL (32.0-36.0); MEAN CORPUSCULAR VOLUME 80.7 fL (81.0-99.0); MEAN PLATELET VOLUME 10.7 fL (7.9-10.8); MONOCYTES # (AUTO) 0.6 10^3/uL (0.0-1.0); MONOCYTES % (AUTO) 6.9 %; NEUTROPHILS # (AUTO) 4.7 10^3/uL (1.5-6.6); NEUTROPHILS % (AUTO) 56.9 %; PLT - PLATELET COUNT 232 10^3/uL (130-450); RED BLOOD COUNT 5.18 10^6/uL (4.20-5.40); RED CELL DISTRIBUTION WIDTH 16.7 % (12.0-15.0); WHITE BLOOD COUNT 8.2 x10^3/uL (4.8-10.8)
--- NOTE | 2021-11-17 07:23 | PROVIDER PROGRESS NOTE ---
Subjective - Prog Note Date Prog Note Date: 11/17/21 - Subjective Subjective: She feels improved today. Less short of breath although still present at times with activity. Feels like her lower extremity edema is improved. Current Medications - Current Medications Current Medications: Active Medications Acetaminophen (Acetaminophen 325 Mg Tablet) 650 mg PO Q4HR PRN PRN Reason: Pain 1 to 4 Aspirin (Aspirin Chew 81 Mg Tablet) 81 mg PO DAILY [facility] Last Admin: 11/16/21 09:16 Dose: 81 mg Documented by: Atorvastatin Calcium (Atorvastatin 40 Mg Tablet) 40 mg PO QPM [facility] Last Admin: 11/16/21 20:20 Dose: 40 mg Documented by: Enoxaparin Sodium (Enoxaparin 80 Mg/0.8 Ml Syringe) 70 mg SUBQ BID [facility] Last Admin: 11/16/21 20:20 Dose: 70 mg Documented by: Furosemide (Furosemide 40 Mg/4 Ml Vial) 60 mg IVP DAILY [facility] Last Admin: 11/16/21 09:18 Dose: 60 mg Documented by: Metoprolol Succinate (Metoprolol Succinate 25 Mg Tablet) 25 mg PO DAILY [facility] Last Admin: 11/16/21 09:17 Dose: 25 mg Documented by: Ondansetron HCl (Ondansetron 4 Mg/2 Ml Vial) 4 mg IVP Q6HR PRN PRN Reason: Nausea / Vomiting Potassium Chloride (Potassium Chloride 20 Meq Tablet) 40 meq PO ONCE ONE Stop: 11/17/21 07:51 Sodium Chloride (Sodium Chloride Flush 0.9% 10 Ml Syringe) 10 ml IVP PRN PRN PRN Reason: NEEDED PER PROVIDER ORDERS Last Admin: 11/16/21 06:44 Dose: 10 ml Documented by: Sodium Chloride (Sodium Chloride Flush 0.9% 10 Ml Syringe) 10 ml IVP 0100,0900,1700 [facility] Last Admin: 11/16/21 23:39 Dose: 10 ml Documented by: Aspirin [Aspirin EC] 81 mg PO DAILY 11/16/21 Objective - Vital Signs/Intake & Output Reviewed Vital Signs: Yes Vital Signs: Vital Signs x48h Temp Pulse Pulse Resp BP Pulse Ox 11/17/21 03:43 36.4 C L 77 16 130/72 98 11/16/21 23:31 36.9 C 67 19 148/76 H 99 Intake & Output: Intake & Output 12/11/15/21 11/16/21 11/17/21 23:59 23:59 23:59 23:59 Intake Total 240 975 50 Output Total 600 1401 Balance -360 -426 50 - Objective General Appearance: positive: No acute distress, Alert Eyes Bilateral: positive: Normal inspection, Conjunctivae nml ENT: positive: ENT inspection nml Neck: positive: Nml inspection Respiratory: positive: No respiratory distress Abdomen: positive: Non-tender, No distention. negative: Tenderness Skin: positive: Warm, Dry Extremities: positive: Pedal edema (+1 pitting edema in bilateral lower extremities.) Neurologic/Psychiatric: negative: Disoriented to person, Disoriented to place - Lab Results Fish Bones: 11/18/21 04:28 11/18/21 04:28 Other Labs: Lab Results x24hrs 11/17/21 11/17/21 11/16/21 Range/Units 05:18 05:18 16:13 WBC 8.2 (4.8-10.8) x10^3/uL RBC 5.18 (4.20-5.40) 10^6/uL Hgb 13.4 (12.0-16.0) g/dL Hct 41.8 (37.0-47.0) % MCV 80.7 L (81.0-99.0) fL MCH 25.9 L (27.0-31.0) pg MCHC 32.1 (32.0-36.0) g/dL RDW 16.7 H (12.0-15.0) % Plt Count 232 (130-450) 10^3/uL MPV 10.7 (7.9-10.8) fL Neut # (Auto) 4.7 (1.5-6.6) 10^3/uL Lymph # (Auto) 2.7 (1.5-3.5) 10^3/uL [place] # (Auto) 0.6 (0.0-1.0) 10^3/uL Eos # (Auto) 0.2 (0.0-0.7) 10^3/uL Baso # (Auto) 0.1 (0.0-0.1) 10^3/uL Absolute Nucleated RBC 0.00 x10^3/uL Nucleated RBC % 0.0 /100WBC Sodium 136 (135-145) mmol/L Potassium 3.8 (3.5-5.0) mmol/L Chloride 97 L (101-111) mmol/L Carbon Dioxide 25 (21-32) mmol/L Anion Gap 14.0 H (6-13) BUN 30 H (6-20) mg/dL Creatinine 1.6 H (0.4-1.0) mg/dL Estimated GFR (MDRD) 31 L (>89) Glucose 121 H (70-100) mg/dL Calcium 8.8 (8.5-10.3) mg/dL Troponin I High Sens (2.3-14.8) ng/L B-Natriuretic Peptide 2688 H (5-100) pg/mL 11/16/21 Range/Units 07:50 WBC (4.8-10.8) x10^3/uL RBC (4.20-5.40) 10^6/uL Hgb (12.0-16.0) g/dL Hct (37.0-47.0) % MCV (81.0-99.0) fL MCH (27.0-31.0) pg MCHC (32.0-36.0) g/dL RDW (12.0-15.0) % Plt Count (130-450) 10^3/uL MPV (7.9-10.8) fL Neut # (Auto) (1.5-6.6) 10^3/uL Lymph # (Auto) (1.5-3.5) 10^3/uL [place] # (Auto) (0.0-1.0) 10^3/uL Eos # (Auto) (0.0-0.7) 10^3/uL Baso # (Auto) (0.0-0.1) 10^3/uL Absolute Nucleated RBC x10^3/uL Nucleated RBC % /100WBC Sodium (135-145) mmol/L Potassium (3.5-5.0) mmol/L Chloride (101-111) mmol/L Carbon Dioxide (21-32) mmol/L Anion Gap (6-13) BUN (6-20) mg/dL Creatinine (0.4-1.0) mg/dL Estimated GFR (MDRD) (>89) Glucose (70-100) mg/dL Calcium (8.5-10.3) mg/dL Troponin I High Sens 63.6 H* (2.3-14.8) ng/L B-Natriuretic Peptide (5-100) pg/mL Assessment/Plan - Problem List (1) Acute combined systolic and diastolic congestive heart failure Impression: Overall, she is significantly improved. She still needs to be diuresed further. Her echocardiogram revealed an ejection fraction of 25%. Her BNP is down to less than 3000 today. Her edema is also improved. We will keep her on Lasix 60 mg IV daily. I am hopeful that we can transition her to oral diuretics over the next 1 to 2 days. Continue with daily weights and strict I's and O's. After discussion with cardiology yesterday, there is no plan to transfer at this time given she is clinically improving. They will have her follow-up on outpatient basis within 2 weeks. (2) Paroxysmal atrial fibrillation with rapid ventricular response Impression: She remains rate controlled although she has had episodes of nonsustained ventricular tachycardia. We will keep her on metoprolol 25 mg daily. If she continues to have episodes of nonsustained V. tach then we will increase metoprolol to 50 mg daily. We will continue therapeutic Lovenox although if she remains stable over next 24 hours we will switch her to Eliquis (3) JOSEPH (acute kidney injury) Impression: This is likely due to cardiorenal syndrome. Her creatinine is improved today to 1.3 from 1.6. This should continue to improve as she is diuresed. Once her renal function is close to baseline we will start her on lisinopril and spironolactone. (4) Hx of coronary artery disease Impression: She has a known history of coronary artery disease with stenting in the LAD. Her troponins were only mildly elevated and this was felt to be demand ischemia given the heart failure. We have continued her home aspirin and start her on Lipitor as well as metoprolol. She will need outpatient follow-up with cardiology once discharged. (5) LBBB (left bundle branch block) Impression: We are managing her heart failure as mentioned above and she will follow-up on an outpatient basis with cardiology.
[2021-11-17 07:45] LABS: CALCIUM 8.9 mg/dL (8.5-10.3); CREATININE 1.3 mg/dL (0.4-1.0); POTASSIUM 3.5 mmol/L (3.5-5.0)
[2021-11-17] MEDS ORDERED: POTASSIUM CHLORIDE 20 MEQ TABLET PO ONE (07:50)
[2021-11-17] MEDS: ASPIRIN CHEW 81 MG TABLET PO SCH (08:23)
[2021-11-17] MEDS: FUROSEMIDE 40 MG/4 ML VIAL IVP SCH (08:24)
[2021-11-17] MEDS: ENOXAPARIN 80 MG/0.8 ML SYRINGE SUBQ SCH ×2 (08:24→21:43)
[2021-11-17] MEDS: SODIUM CHLORIDE FLUSH 0.9% 10 ML SYRINGE IVP SCH ×2 (08:25→19:03)
[2021-11-17] MEDS: METOPROLOL SUCCINATE 25 MG TABLET PO SCH (08:25)
[2021-11-17] MEDS: ATORVASTATIN 40 MG TABLET PO SCH (21:43)
[2021-11-18] MEDS: SODIUM CHLORIDE FLUSH 0.9% 10 ML SYRINGE IVP SCH ×3 (00:55→18:26)
[2021-11-18] MEDS: ACETAMINOPHEN 325 MG TABLET PO PRN ×2 (02:34→18:26)
[2021-11-18] MEDS: ONDANSETRON 4 MG/2 ML VIAL IVP PRN (02:35)
[2021-11-18] MEDS: SODIUM CHLORIDE FLUSH 0.9% 10 ML SYRINGE IVP PRN (02:35)
[2021-11-18 05:34] LABS: BASOPHILS % (AUTO) 0.4 %; EOSINOPHILS # (AUTO) 0.1 10^3/uL (0.0-0.7); EOSINOPHILS % (AUTO) 1.4 %; HCT - HEMATOCRIT 39.9 % (37.0-47.0); HGB - HEMOGLOBIN 12.4 g/dL (12.0-16.0); LYMPHOCYTES # (AUTO) 1.7 10^3/uL (1.5-3.5); LYMPHOCYTES % (AUTO) 24.3 %; MEAN CORPUSCULAR HEMOGLOBIN 25.3 pg (27.0-31.0); MEAN CORPUSCULAR HGB CONC 31.1 g/dL (32.0-36.0); MEAN CORPUSCULAR VOLUME 81.3 fL (81.0-99.0); MEAN PLATELET VOLUME 10.8 fL (7.9-10.8); MONOCYTES # (AUTO) 0.5 10^3/uL (0.0-1.0); MONOCYTES % (AUTO) 7.4 %; NEUTROPHILS # (AUTO) 4.6 10^3/uL (1.5-6.6); NEUTROPHILS % (AUTO) 66.1 %; PLT - PLATELET COUNT 225 10^3/uL (130-450); RED BLOOD COUNT 4.91 10^6/uL (4.20-5.40); RED CELL DISTRIBUTION WIDTH 16.7 % (12.0-15.0); WHITE BLOOD COUNT 6.9 x10^3/uL (4.8-10.8)
[2021-11-18 05:38] LABS: CALCIUM 8.6 mg/dL (8.5-10.3); CREATININE 1.4 mg/dL (0.4-1.0); POTASSIUM 3.7 mmol/L (3.5-5.0)
--- NOTE | 2021-11-18 08:23 | PROVIDER PROGRESS NOTE ---
Subjective - Prog Note Date Prog Note Date: 11/18/21 - Subjective Subjective: She felt quite short of breath overnight and felt like she was having a panic attack. She feels much better this morning. No dyspnea at rest or with activity. She still has orthopnea. She is concerned that she feels her lower extremities are more edematous today. Current Medications - Current Medications Current Medications: Active Medications Acetaminophen (Acetaminophen 325 Mg Tablet) 650 mg PO Q4HR PRN PRN Reason: Pain 1 to 4 Last Admin: 11/18/21 02:34 Dose: 650 mg Documented by: Apixaban (Apixaban 5 Mg Tablet) 5 mg PO BID [facility] Aspirin (Aspirin Chew 81 Mg Tablet) 81 mg PO DAILY [facility] Last Admin: 11/17/21 08:23 Dose: 81 mg Documented by: Atorvastatin Calcium (Atorvastatin 40 Mg Tablet) 40 mg PO QPM [facility] Last Admin: 11/17/21 21:43 Dose: 40 mg Documented by: Furosemide (Furosemide 40 Mg/4 Ml Vial) 60 mg IVP DAILY [facility] Metoprolol Succinate (Metoprolol Succinate 25 Mg Tablet) 25 mg PO DAILY [facility] Last Admin: 11/17/21 08:25 Dose: 25 mg Documented by: Ondansetron HCl (Ondansetron 4 Mg/2 Ml Vial) 4 mg IVP Q6HR PRN PRN Reason: Nausea / Vomiting Last Admin: 11/18/21 02:35 Dose: 4 mg Documented by: Sodium Chloride (Sodium Chloride Flush 0.9% 10 Ml Syringe) 10 ml IVP PRN PRN PRN Reason: NEEDED PER PROVIDER ORDERS Last Admin: 11/18/21 02:35 Dose: 10 ml Documented by: Sodium Chloride (Sodium Chloride Flush 0.9% 10 Ml Syringe) 10 ml IVP 0100,0900,1700 [facility] Last Admin: 11/18/21 00:55 Dose: 10 ml Documented by: Aspirin [Aspirin EC] 81 mg PO DAILY 11/16/21 Objective - Vital Signs/Intake & Output Reviewed Vital Signs: Yes Vital Signs: Vital Signs x48h Temp Pulse Pulse Resp BP BP Pulse Ox 11/18/21 07:31 36.3 C L 78 18 117/65 97 11/18/21 05:28 36.4 C L 55 L 18 115/77 93 11/18/21 02:21 67 18 116/76 98 11/18/21 02:20 66 82/65 L 98 11/18/21 02:13 60 20 95/65 100 11/18/21 00:39 36.6 C 88 18 102/71 100 Intake & Output: Intake & Output 11/15/21 11/16/21 11/17/21 11/18/21 23:59 23:59 23:59 23:59 Intake Total 460 367 4252 350 Output Total 600 1401 100 Balance -360 -426 1196 350 - Objective General Appearance: positive: No acute distress, Alert Eyes Bilateral: positive: Normal inspection, Conjunctivae nml ENT: positive: ENT inspection nml Neck: positive: Nml inspection Respiratory: positive: No respiratory distress, Other (Crackles bilaterally.) Cardiovascular: positive: Regular rate & rhythm. negative: Tachycardia, Systolic murmur Skin: positive: Warm, Dry Extremities: positive: Pedal edema (+1 to +2 pitting edema in bilateral lower extremities.) Neurologic/Psychiatric: positive: Motor nml. negative: Disoriented to person, Disoriented to place - Lab Results Fish Bones: 11/18/21 04:28 11/18/21 04:28 Other Labs: Lab Results x24hrs 11/18/21 11/18/21 11/18/21 Range/Units 04:28 04:28 04:28 WBC 6.9 (4.8-10.8) x10^3/uL RBC 4.91 (4.20-5.40) 10^6/uL Hgb 12.4 (12.0-16.0) g/dL Hct 39.9 (37.0-47.0) % MCV 81.3 (81.0-99.0) fL MCH 25.3 L (27.0-31.0) pg MCHC 31.1 L (32.0-36.0) g/dL RDW 16.7 H (12.0-15.0) % Plt Count 225 (130-450) 10^3/uL MPV 10.8 (7.9-10.8) fL Neut # (Auto) 4.6 (1.5-6.6) 10^3/uL Lymph # (Auto) 1.7 (1.5-3.5) 10^3/uL [place] # (Auto) 0.5 (0.0-1.0) 10^3/uL Eos # (Auto) 0.1 (0.0-0.7) 10^3/uL Baso # (Auto) 0.0 (0.0-0.1) 10^3/uL Absolute Nucleated RBC 0.00 x10^3/uL Nucleated RBC % 0.0 /100WBC Sodium 135 (135-145) mmol/L Potassium 3.7 (3.5-5.0) mmol/L Chloride 100 L (101-111) mmol/L Carbon Dioxide 22 (21-32) mmol/L Anion Gap 13.0 (6-13) BUN 34 H (6-20) mg/dL Creatinine 1.4 H (0.4-1.0) mg/dL Estimated GFR (MDRD) 36 L (>89) Glucose 141 H (70-100) mg/dL Calcium 8.6 (8.5-10.3) mg/dL B-Natriuretic Peptide 2629 H (5-100) pg/mL Assessment/Plan - Problem List (1) Acute combined systolic and diastolic congestive heart failure Impression: She is improved overall and I was hoping to transition her to oral diuretics today but her weight is slightly increased and she also has worsening lower extremity edema. Her BNP is still quite elevated at 2600. She also continues to have orthopnea and she does have crackles on exam. We will repeat a chest x- ray today and continue with IV Lasix 60 mg daily. We will reassess in the afternoon for further diuretics if necessary. We will also place her on fluid restriction of 1800 mL. Continue low-sodium diet. Continue with daily weights and strict I's and O's. (2) Paroxysmal atrial fibrillation with rapid ventricular response Impression: She is rate controlled and in sinus rhythm. We will switch her to Eliquis today and discontinue Lovenox. We will continue the current dose of metoprolol. (3) JOSEPH (acute kidney injury) Impression: This was felt to be cardiorenal syndrome. Her creatinine is slightly increased today as well as her BUN. She still appears hypervolemic and will continue to diurese her. If her BUN and creatinine continues to climb then this could be evidence of her being relatively close to euvolemia. We will continue to monitor renal function. We will continue to hold off on initiating lisinopril or spironolactone at this time. (4) Hx of coronary artery disease Impression: She has a known history of coronary artery disease with stenting in the LAD. Her troponins were only mildly elevated and this was felt to be demand ischemia given the heart failure. We have continued her home aspirin and start her on Lipitor as well as metoprolol. She will need outpatient follow-up with cardiology once discharged. (5) LBBB (left bundle branch block) Impression: We are managing her heart failure as mentioned above and she will follow-up on an outpatient basis with cardiology.
[2021-11-18] MEDS: METOPROLOL SUCCINATE 25 MG TABLET PO SCH (08:35)
[2021-11-18] MEDS: ASPIRIN CHEW 81 MG TABLET PO SCH (08:35)
[2021-11-18] MEDS: APIXABAN 5 MG TABLET PO SCH ×2 (08:35→21:23)
--- NOTE | 2021-11-18 08:55 | XRAY Report ---
PROCEDURE: Chest 1 View X-Ray INDICATIONS: Follow up CHF. Dyspnea. Cough. TECHNIQUE: One view of the chest was acquired. COMPARISON: 11/15/2021 FINDINGS: Surgical changes and devices: None. Lungs and pleura: No pleural effusions or pneumothorax. Lungs are clear. Interstitial prominence id entified 11/15/2021 has resolved. Mediastinum: Mediastinal contours appear normal. Atherosclerotic calcifications in the aortic arch. Heart size is normal. Bones and chest wall: No suspicious bony lesions. Overlying soft tissues appear unremarkable. IMPRESSION: No acute cardiopulmonary disease process. Reviewed by: Mona Caraballo MD, PhD on 11/18/2021 8:54 AM PST Approved by: Mona Caraballo MD, PhD on 11/18/2021 8:54 AM PST Station ID: [id number]
[2021-11-18] MEDS ORDERED: FUROSEMIDE 40 MG/4 ML VIAL IVP SCH (09:00)
[2021-11-18] MEDS ORDERED: FUROSEMIDE 40 MG TABLET PO SCH (09:00)
[2021-11-18] MEDS: CYCLOBENZAPRINE 10 MG TABLET PO PRN (19:12)
[2021-11-18] MEDS: ATORVASTATIN 40 MG TABLET PO SCH (21:23)
[2021-11-19] MEDS: SODIUM CHLORIDE FLUSH 0.9% 10 ML SYRINGE IVP SCH ×4 (05:21→23:45)
[2021-11-19 05:41] LABS: BASOPHILS % (AUTO) 0.6 %; EOSINOPHILS # (AUTO) 0.2 10^3/uL (0.0-0.7); EOSINOPHILS % (AUTO) 2.4 %; HCT - HEMATOCRIT 40.8 % (37.0-47.0); HGB - HEMOGLOBIN 12.8 g/dL (12.0-16.0); LYMPHOCYTES % (AUTO) 32.2 %; MEAN CORPUSCULAR HEMOGLOBIN 25.9 pg (27.0-31.0); MEAN CORPUSCULAR HGB CONC 31.4 g/dL (32.0-36.0); MEAN CORPUSCULAR VOLUME 82.4 fL (81.0-99.0); MEAN PLATELET VOLUME 11.1 fL (7.9-10.8); MONOCYTES # (AUTO) 0.5 10^3/uL (0.0-1.0); MONOCYTES % (AUTO) 8.2 %; NEUTROPHILS # (AUTO) 3.6 10^3/uL (1.5-6.6); NEUTROPHILS % (AUTO) 56.4 %; PLT - PLATELET COUNT 210 10^3/uL (130-450); RED BLOOD COUNT 4.95 10^6/uL (4.20-5.40); RED CELL DISTRIBUTION WIDTH 16.6 % (12.0-15.0); WHITE BLOOD COUNT 6.3 x10^3/uL (4.8-10.8)
[2021-11-19 05:47] LABS: CALCIUM 8.8 mg/dL (8.5-10.3); CREATININE 1.4 mg/dL (0.4-1.0); POTASSIUM 3.7 mmol/L (3.5-5.0)
[2021-11-19] MEDS: ASPIRIN CHEW 81 MG TABLET PO SCH (08:30)
[2021-11-19] MEDS: APIXABAN 5 MG TABLET PO SCH ×2 (08:30→21:15)
[2021-11-19] MEDS: METOPROLOL SUCCINATE 25 MG TABLET PO SCH (08:30)
--- NOTE | 2021-11-19 08:31 | PROVIDER PROGRESS NOTE ---
Subjective - Prog Note Date Prog Note Date: 11/19/21 - Subjective Subjective: She denies any dyspnea at rest or with activity. Also feels like her lower extremity edema is improved today. Denies any chest pain. Current Medications - Current Medications Current Medications: Active Medications Acetaminophen (Acetaminophen 325 Mg Tablet) 650 mg PO Q4HR PRN PRN Reason: Pain 1 to 4 Last Admin: 11/18/21 18:26 Dose: 650 mg Documented by: Apixaban (Apixaban 5 Mg Tablet) 5 mg PO BID [facility] Last Admin: 11/18/21 21:23 Dose: 5 mg Documented by: Aspirin (Aspirin Chew 81 Mg Tablet) 81 mg PO DAILY [facility] Last Admin: 11/18/21 08:35 Dose: 81 mg Documented by: Atorvastatin Calcium (Atorvastatin 40 Mg Tablet) 40 mg PO QPM [facility] Last Admin: 11/18/21 21:23 Dose: 40 mg Documented by: Cyclobenzaprine HCl (Cyclobenzaprine 10 Mg Tablet) 5 mg PO TID PRN PRN Reason: Spasms Last Admin: 11/18/21 19:12 Dose: 5 mg Documented by: Furosemide (Furosemide 40 Mg Tablet) 60 mg PO DAILY [facility] Lisinopril (Lisinopril 5 Mg Tablet) 5 mg PO DAILY [facility] Metoprolol Succinate (Metoprolol Succinate 25 Mg Tablet) 25 mg PO DAILY [facility] Last Admin: 11/18/21 08:35 Dose: 25 mg Documented by: Ondansetron HCl (Ondansetron 4 Mg/2 Ml Vial) 4 mg IVP Q6HR PRN PRN Reason: Nausea / Vomiting Last Admin: 11/18/21 02:35 Dose: 4 mg Documented by: Sodium Chloride (Sodium Chloride Flush 0.9% 10 Ml Syringe) 10 ml IVP PRN PRN PRN Reason: NEEDED PER PROVIDER ORDERS Last Admin: 11/18/21 02:35 Dose: 10 ml Documented by: Sodium Chloride (Sodium Chloride Flush 0.9% 10 Ml Syringe) 10 ml IVP 0100,090 0,1700 [facility] Last Admin: 11/19/21 05:21 Dose: 10 ml Documented by: Aspirin [Aspirin EC] 81 mg PO DAILY 11/16/21 Objective - Vital Signs/Intake & Output Reviewed Vital Signs: Yes Vital Signs: Vital Signs x48h Temp Pulse Resp BP Pulse Ox 11/19/21 04:56 36.4 C L 70 16 134/74 H 96 Intake & Output: Intake & Output 11/16/21 11/17/21 11/18/21 11/19/21 23:59 23:59 23:59 23:59 Intake Total 975 1296 980 Output Total 9593 539 4616 Balance -426 1196 -270 - Objective General Appearance: positive: No acute distress, Alert Eyes Bilateral: positive: Normal inspection, Conjunctivae nml ENT: positive: ENT inspection nml Neck: positive: Nml inspection Respiratory: positive: No respiratory distress. negative: Wheezes, Rales Cardiovascular: positive: Regular rate & rhythm, Extrasystoles. negative: Tachycardia, Systolic murmur Skin: positive: Warm, Dry Extremities: positive: Pedal edema (+1 pitting edema in bilateral lower extrem ities) Neurologic/Psychiatric: positive: Motor nml. negative: Disoriented to person, Disoriented to place - Lab Results Fish Bones: 11/19/21 04:59 11/19/21 04:59 Other Labs: Lab Results x24hrs 11/19/21 11/19/21 11/19/21 Range/Units 04:59 04:59 04:59 WBC 6.3 (4.8-10.8) x10^3/uL RBC 4.95 (4.20-5.40) 10^6/uL Hgb 12.8 (12.0-16.0) g/dL Hct 40.8 (37.0-47.0) % MCV 82.4 (81.0-99.0) fL MCH 25.9 L (27.0-31.0) pg MCHC 31.4 L (32.0-36.0) g/dL RDW 16.6 H (12.0-15.0) % Plt Count 210 (130-450) 10^3/uL MPV 11.1 H (7.9-10.8) fL Neut # (Auto) 3.6 (1.5-6.6) 10^3/uL Lymph # (Auto) 2.0 (1.5-3.5) 10^3/uL [place]ke # (Auto) 0.5 (0.0-1.0) 10^3/uL Eos # (Auto) 0.2 (0.0-0.7) 10^3/uL Baso # (Auto) 0.0 (0.0-0.1) 10^3/uL Absolute Nucleated RBC 0.00 x10^3/uL Nucleated RBC % 0.0 /100WBC Sodium 136 (135-145) mmol/L Potassium 3.7 (3.5-5.0) mmol/L Chloride 98 L (101-111) mmol/L Carbon Dioxide 25 (21-32) mmol/L Anion Gap 13.0 (6-13) BUN 38 H (6-20) mg/dL Creatinine 1.4 H (0.4-1.0) mg/dL Estimated GFR (MDRD) 36 L (>89) Glucose 116 H (70-100) mg/dL Calcium 8.8 (8.5-10.3) mg/dL B-Natriuretic Peptide 2096 H (5-100) pg/mL Assessment/Plan - Problem List (1) Acute combined systolic and diastolic congestive heart failure Impression: She is significantly improved compared to admission. Her BNP is now 2000 and her lower extremity edema is improved. X-ray yesterday showed no evidence of heart failure. Her BUN is slightly increased today suspect she is close to her dry weight despite lower extremity edema. We will transition her to oral Lasix 60 mg daily today. We will also add lisinopril 5 mg daily. We will continue with Toprol. If she does well over next 24 hours on oral diuretics then she will be medically stable for discharge home. We will look to potentially start spironolactone while she is here as well but we will need to monitor her renal function closely with the initiation of that and lisinopril. She will need outpatient follow-up with cardiology. This was discussed with cardiology at [facility] and they will see her within 2 weeks. (2) Paroxysmal atrial fibrillation with rapid ventricular response Impression: She remains rate controlled on metoprolol. She is now on Eliquis for anticoagulation. (3) JOSEPH (acute kidney injury) Impression: Her creatinine peaked at 1.6 and her baseline appears to be 1.3-1.4. Suspect she may have chronic kidney disease but I do not have prior labs to compare to. We will switch her to oral diuretics today and start lisinopril. We will monitor her renal function with the initiation of lisinopril and if it is stable we will look to add spironolactone. (4) Hx of coronary artery disease Impression: She has a known history of coronary artery disease with stenting in the LAD. Her troponins were only mildly elevated and this was felt to be demand ischemia given the heart failure. We have continued her home aspirin and start her on Lipitor as well as metoprolol. She will need outpatient follow-up with cardiology once discharged.. (5) LBBB (left bundle branch block) Impression: We are managing her heart failure as mentioned above and she will follow-up on an outpatient basis with cardiology.
[2021-11-19] MEDS: lisinopriL 5 MG TABLET PO SCH (08:38)
[2021-11-19] MEDS: FUROSEMIDE 40 MG TABLET PO SCH (08:38)
[2021-11-19] MEDS: ACETAMINOPHEN 325 MG TABLET PO PRN (16:44)
[2021-11-19] MEDS: CYCLOBENZAPRINE 10 MG TABLET PO PRN (18:55)
[2021-11-19] MEDS: ATORVASTATIN 40 MG TABLET PO SCH (21:15)
[2021-11-20] MEDS: ONDANSETRON 4 MG/2 ML VIAL IVP PRN (00:14)
[2021-11-20] MEDS: CYCLOBENZAPRINE 10 MG TABLET PO PRN (03:42)
[2021-11-20 06:25] LABS: BASOPHILS % (AUTO) 0.5 %; EOSINOPHILS # (AUTO) 0.1 10^3/uL (0.0-0.7); HCT - HEMATOCRIT 38.9 % (37.0-47.0); HGB - HEMOGLOBIN 12.1 g/dL (12.0-16.0); LYMPHOCYTES # (AUTO) 1.8 10^3/uL (1.5-3.5); LYMPHOCYTES % (AUTO) 27.1 %; MEAN CORPUSCULAR HEMOGLOBIN 25.4 pg (27.0-31.0); MEAN CORPUSCULAR HGB CONC 31.1 g/dL (32.0-36.0); MEAN CORPUSCULAR VOLUME 81.7 fL (81.0-99.0); MONOCYTES # (AUTO) 0.5 10^3/uL (0.0-1.0); MONOCYTES % (AUTO) 7.1 %; NEUTROPHILS # (AUTO) 4.1 10^3/uL (1.5-6.6); PLT - PLATELET COUNT 212 10^3/uL (130-450); RED BLOOD COUNT 4.76 10^6/uL (4.20-5.40); RED CELL DISTRIBUTION WIDTH 16.5 % (12.0-15.0); WHITE BLOOD COUNT 6.5 x10^3/uL (4.8-10.8)
[2021-11-20 06:28] LABS: CALCIUM 8.5 mg/dL (8.5-10.3); CREATININE 1.3 mg/dL (0.4-1.0); POTASSIUM 3.5 mmol/L (3.5-5.0)
--- NOTE | 2021-11-20 09:01 | DISCHARGE SUMMARY ---
"Discharge Summary Admit Date: 11/15/21 Discharge Date: 11/20/21 Discharging Provider: Ernesto warren Code Status: Attempt Resuscitation Condition at Discharge: Stable Discharge Disposition: 01 Home, Self Care - DIAGNOSES Admission Diagnoses: Paroxysmal atrial fibrillation with RVR New onset of congestive heart failure JOSEPH Left bundle branch block History of coronary artery disease Discharge Diagnoses with Status of Each Condition: Acute combined systolic and diastolic congestive heart failure - improved. Paroxysmal atrial fibrillation with RVR - resolved. JOSEPH- resolved. History of coronary artery disease - stable. Left bundle branch block - stable. - HPI History of Present Illness: H&P per Dr. Ivan: This is an 81 y/o female, who moved from [place] to [facility] to live with her daughter 6 mos ago. She has not yet established with a PCP. She has a Hx of coronary artery disease (with 2 stents placed in 2014 at [facility] in [facility], by Dr Dorantes, before she moved to [place]. ). Mikael also has a history of paroxysmal Afib and used to be on Metoprolol, but said her last PCP stopped it 6 mos ago. She only takes 1 baby aspirin daily. Over the past 2 mos, she has felt intermittent rapid palpitations and has progressively worsening SOB with activity. Over the past 2-3 days she is also orthopneic and has new leg edema, bad enough that she cannot bend her knees, and therefore she presented to the ED. She reported that her diet, made by her daughter, contains alot of salt. She denies any chest pain, cough or fever. There is no pain in her legs. She was given IV Lasix and started to have diuresis and says she feels slightly better. She was also found to be in A. fib with RVR at a rate of 120. We discussed her CODE BLUE wishes and she wants to be a Full Code. - CONSULTS | PROCEDURES Procedures: Echocardiogram revealed normal left ventricular size with severe global hypokinesis, EF 25%. There is diastolic dysfunction consistent with grade 3. Moderately dilated right ventricle with severely reduced function. Moderate p ulmonary pretension, PASP 58 mmHg. At least moderate, likely functional mitral regurgitation - HOSPITAL COURSE Hospital Course: She was admitted for new onset congestive heart failure and atrial fibrillation with RVR. Her heart rate is able to be controlled with oral metoprolol and she converted to sinus rhythm shortly after admission. She started on Lovenox empirically for anticoagulation as it was initially thought she may be transferred for cardiology evaluation if her ejection fraction was significantly reduced. Her echocardiogram revealed an ejection fraction of 25% with grade 3 diastolic dysfunction. She was diuresed with IV Lasix with improvement in her respiratory status. Her BNP was nearly 3000 on admission and this increased to over 6000 before decreasing to 1600 on discharge. We spoke with cardiology at [facility] as the initial on-call window shade cutter and mounter recommended transfer if her ejection fraction was less than 40%. After speaking with [facility] once again, they felt that as long as she was improving that there was no need for transfer and she can be followed up on an outpatient basis within 2 weeks. Given she improved with diuretics she was not transferred. After 3 days of IV diuretics she was started on oral Lasix. We will also start her on lisinopril. She was still edematous on day of discharge but was no longer dyspneic and her BNP was significantly decreased. She was discharged home on metoprolol, Eliqui s, lisinopril, Lasix 60 mg daily. She was referred to the CHF classes. She will need to follow-up with cardiology within 2 weeks. She was also asked to have labs checked on outpatient basis within 3 days. This is to ensure her renal function is stable. - ALLERGIES Allergies/Adverse Reactions: Allergies Allergy/AdvReac Type Severity Reaction Status Date / Time Penicillins Allergy Unknown Verified 11/15/21 14:07 povidone-iodine Allergy Rash Verified 11/15/21 14:07 [From Betadine] - MEDICATIONS Home Medications: Ambulatory Orders Medication Instructions Recorded Confirmed Aspirin [Aspirin EC] 81 mg PO DAILY 11/16/21 11/16/21 Apixaban [Eliquis] 5 mg PO BID #60 tablet 11/20/21 Atorvastatin [Lipitor] 40 mg PO QPM #30 tablet 11/20/21 Furosemide [Lasix] 60 mg PO DAILY #45 tablet 11/20/21 Metoprolol Succinate [Toprol Xl] 25 mg PO DAILY #30 tablet 11/20/21 lisinopriL [Zestril] 5 mg PO DAILY #30 tablet 11/20/21 - PHYSICAL EXAM AT DISCHARGE General Appearance: positive: No acute distress, Alert Eyes Bilateral: positive: Normal inspection, Conjunctivae nml ENT: positive: ENT inspection nml Neck: positive: Nml inspection Respiratory: positive: No respiratory distress. negative: Wheezes, Rales Cardiovascular: positive: Regular rate & rhythm, No murmur. negative: Tachycardia Abdomen: positive: Non-tender, No distention. negative: Tenderness Skin: positive: Warm, Dry Extremities: positive: Pedal edema (+1 edema in bilateral lower extremities) Neurologic/Psychiatric: positive: Motor nml. negative: Disoriented to person, Disoriented to place Physical Exam Other/Comments: Vital Signs - 24 hr 11/19/21 11/19/21 11/20/21 20:12 23:20 04:33 Temperature 36.4 C L 36.4 C L 36.5 C Heart Rate [ 68 58 L Brachial] Heart Rate [ 55 L Monitoring electrodes] Respiratory 16 16 18 Rate Blood Pressure 104/61 113/60 125/64 [Right Brachial artery] O2 Saturation 95 98 97 11/20/21 11/20/21 08:58 09:55 Temperature 36.6 C Heart Rate [ 82 Brachial] Heart Rate [ 80 Monitoring electrodes] Respiratory 15 Rate Blood Pressure 131/65 H 111/53 L [Right Brachial artery] O2 Saturation 92 Oxygen O2 Source Room air - LABS Result Diagrams: 11/20/21 05:15 11/20/21 05:15 - DIAGNOSTIC IMAGING Diagnostic Imaging Results: Final report reviewed - FOLLOW UP Follow Up: She was asked to follow-up with her primary care physician within 1 week and with cardiology at [facility] within 2 weeks. She will need a BMP in 3 days to ensure her renal function and electrolytes are stable. - TIME SPENT Time Spent in Discharge (Minutes): 37"
--- NOTE | 2021-11-20 09:01 | Discharge Plan ---
Discharge Plan Problem Reviewed?: Yes Disposition: Home, Self Care Condition: Stable Prescriptions: Apixaban [Eliquis] 5 mg PO BID #60 tablet Furosemide [Lasix] 60 mg PO DAILY #45 tablet Atorvastatin [Lipitor] 40 mg PO QPM #30 tablet Metoprolol Succinate [Toprol Xl] 25 mg PO DAILY #30 tablet lisinopriL [Zestril] 5 mg PO DAILY #30 tablet Diet: Low Sodium Activity Restrictions: Activity as Tolerated Instruction Topics: Heart Failure, Heart Failure Warning Signs, Heart Failure Diet Changes Health Concerns: You were admitted to the hospital because of shortness of breath due to heart failure. We did an ultrasound of your heart which showed your heart muscle is weak. It is pumping about 25% of the blood in it with each beat rather than the normal 55%. We gave you IV diuretics to help remove fluid and your breathing has improved. We spoke with the cardiology team at [place] who recommend that you follow-up with him in 1 to 2 weeks. You were also found to have atrial fibrillation which is in a regular heart rhythm. Fortunately you converted back to a normal rhythm but we will need to keep you on blood thinners to decrease your risk of stroke in the future. Plan of Treatment: You can continue to take aspirin 81 mg daily. Please begin to take Eliquis 5 mg twice daily which is a blood thinner to reduce your risk of stroke due to atrial fibrillation. Please begin to take metoprolol and lisinopril which can help improve your heart function. Please continue to take Lasix which is a diuretic to help remove fluid. Please also begin to take Lipitor given you have a history of heart disease and this can help prevent future heart attacks. Please make sure to check your weight on a daily basis and to contact your primary care physician if you gain 2 to 3 pounds as this can be evidence of fluid retention. Please adhere to a low-sodium diet of about 2 g a day. Please take the evening dose of your medications at 9 PM. This will be predominantly for the blood thinner Eliquis and the Lipitor. You may warehouse picker your medications tomorrow at [facility] as the pharmacy is closed today. Care Goals: The goal is to maintain a good fluid balance to help prevent future episodes of heart failure. Assessment: The patient expressed understanding of the treatment plan. Additional Instructions or Follow Up instructions: Please follow-up with your primary care physician in 1 week and with cardiology at [facility] in 1 to 2 weeks. You should also have blood work done in 2 to 3 days to ensure your kidney numbers are stable on these new medications. Follow-Up Care: [facility] - CHF Classes No Smoking: If you smoke, Please STOP! Call for help. Follow-up with: Braulio Duncan MD [Physician No Access] -
[2021-11-20] MEDS: FUROSEMIDE 40 MG TABLET PO SCH (09:40)
[2021-11-20] MEDS: ASPIRIN CHEW 81 MG TABLET PO SCH (09:40)
[2021-11-20] MEDS: APIXABAN 5 MG TABLET PO SCH (09:40)
[2021-11-20] MEDS: SODIUM CHLORIDE FLUSH 0.9% 10 ML SYRINGE IVP SCH (09:41)
[2021-11-20] MEDS: lisinopriL 5 MG TABLET PO SCH (09:53)
[2021-11-20] MEDS: METOPROLOL SUCCINATE 25 MG TABLET PO SCH (09:54)
[2021-11-20 09:56] VITALS: BP 111/53
[2021-11-20] MEDS ORDERED: APIXABAN 5 MG TABLET PO ONE (11:00)
[2021-11-20] MEDS ORDERED: ATORVASTATIN 40 MG TABLET PO ONE (12:30)
== END 2021-11-20 14:25 | disposition home or self-care (01) | DRG 292 ==
LOC: ED 13:55 → MS2 18:03
PROVIDERS: ADMIT Internal Medicine; ATTEND Internal Medicine
DX: I50.41 Acute combined systolic (congestive) and diastolic (congestive) heart failure (principal); I50.9 Heart failure, unspecified; N17.9 Acute kidney failure, unspecified; I48.0 Paroxysmal atrial fibrillation; I25.10 Atherosclerotic heart disease of native coronary artery without angina pectoris; R06.03 Acute respiratory distress; Z20.822 Contact with and (suspected) exposure to COVID-19; I44.7 Left bundle-branch block, unspecified; Z95.5 Presence of coronary angioplasty implant and graft; Z79.82 Long term (current) use of aspirin; R25.1 Tremor, unspecified
CPT/HCPCS: 36415; 71045; 80048; 80053; 80061; 81001; 83690; 83735; 83880; 84443; 84484; 85025; 87086; 87181; 87631; 93005; 93306; 96374; 96375; 99285; 99291; A9270; J1650; 0202U; 81003; 83721

== ENCOUNTER 2021-12-28 09:12 | Outpatient (CLI) | payer MEDICARE, OTHER ==
[2021-12-28 13:51] LABS: BASOPHILS # (AUTO) 0.1 10^3/uL (0.0-0.1); BASOPHILS % (AUTO) 0.8 %; EOSINOPHILS # (AUTO) 0.2 10^3/uL (0.0-0.7); EOSINOPHILS % (AUTO) 1.8 %; HCT - HEMATOCRIT 51.7 % (37.0-47.0); HGB - HEMOGLOBIN 16.2 g/dL (12.0-16.0); LYMPHOCYTES # (AUTO) 3.4 10^3/uL (1.5-3.5); LYMPHOCYTES % (AUTO) 38.6 %; MEAN CORPUSCULAR HEMOGLOBIN 25.1 pg (27.0-31.0); MEAN CORPUSCULAR HGB CONC 31.3 g/dL (32.0-36.0); MEAN CORPUSCULAR VOLUME 80.2 fL (81.0-99.0); MEAN PLATELET VOLUME 11.7 fL (7.9-10.8); MONOCYTES # (AUTO) 0.7 10^3/uL (0.0-1.0); NEUTROPHILS # (AUTO) 4.4 10^3/uL (1.5-6.6); NEUTROPHILS % (AUTO) 50.6 %; PLT - PLATELET COUNT 223 10^3/uL (130-450); RED BLOOD COUNT 6.45 10^6/uL (4.20-5.40); RED CELL DISTRIBUTION WIDTH 18.4 % (12.0-15.0); WHITE BLOOD COUNT 8.7 x10^3/uL (4.8-10.8)
[2021-12-28 14:01] LABS: CALCIUM 9.9 mg/dL (8.5-10.3); CREATININE 1.5 mg/dL (0.4-1.0); POTASSIUM 4.2 mmol/L (3.5-5.0)
== END 2021-12-28 09:13 | disposition home or self-care (01) ==
LOC: LAB.N 09:12
PROVIDERS: ATTEND Internal Medicine Cardiovascular Disease
DX: I25.10 Atherosclerotic heart disease of native coronary artery without angina pectoris (principal)
CPT/HCPCS: 36415; 80048; 85025

== ENCOUNTER 2022-02-03 11:01 | Outpatient (CLI) | payer MEDICARE, OTHER ==
[2022-02-03 18:33] LABS: CALCIUM 9.6 mg/dL (8.5-10.3); CREATININE 1.1 mg/dL (0.4-1.0); POTASSIUM 4.7 mmol/L (3.5-5.0)
== END 2022-02-03 11:02 | disposition home or self-care (01) ==
LOC: LAB.N 11:01
PROVIDERS: ATTEND Internal Medicine Cardiovascular Disease
DX: I50.22 Chronic systolic (congestive) heart failure (principal)
CPT/HCPCS: 36415; 80048

== ENCOUNTER 2022-12-13 11:21 | Outpatient (CLI) | payer MEDICARE, OTHER ==
[2022-12-13 18:00] LABS: BASOPHILS % (AUTO) 0.5 %; EOSINOPHILS # (AUTO) 0.2 10^3/uL (0.0-0.7); EOSINOPHILS % (AUTO) 2.2 %; HCT - HEMATOCRIT 40.2 % (37.0-47.0); HGB - HEMOGLOBIN 12.7 g/dL (12.0-16.0); LYMPHOCYTES # (AUTO) 2.2 10^3/uL (1.5-3.5); LYMPHOCYTES % (AUTO) 28.2 %; MEAN CORPUSCULAR HEMOGLOBIN 29.2 pg (27.0-31.0); MEAN CORPUSCULAR HGB CONC 31.6 g/dL (32.0-36.0); MEAN CORPUSCULAR VOLUME 92.4 fL (81.0-99.0); MEAN PLATELET VOLUME 11.5 fL (7.9-10.8); MONOCYTES # (AUTO) 0.6 10^3/uL (0.0-1.0); MONOCYTES % (AUTO) 7.6 %; NEUTROPHILS # (AUTO) 4.7 10^3/uL (1.5-6.6); NEUTROPHILS % (AUTO) 61.2 %; PLT - PLATELET COUNT 239 10^3/uL (130-450); RED BLOOD COUNT 4.35 10^6/uL (4.20-5.40); RED CELL DISTRIBUTION WIDTH 12.9 % (12.0-15.0); WHITE BLOOD COUNT 7.7 x10^3/uL (4.8-10.8)
== END 2022-12-13 11:22 | disposition home or self-care (01) ==
LOC: LAB.N 11:21
PROVIDERS: ATTEND Internal Medicine Cardiovascular Disease
DX: I50.22 Chronic systolic (congestive) heart failure (principal)
CPT/HCPCS: 36415; 85025

== ENCOUNTER 2023-06-21 11:08 | Outpatient (CLI) | payer MEDICARE, OTHER ==
[2023-06-21 17:50] LABS: CALCIUM 9.8 mg/dL (8.5-10.3); CREATININE 1.2 mg/dL (0.6-1.3); POTASSIUM 4.2 mmol/L (3.5-4.5)
== END 2023-06-21 11:09 | disposition home or self-care (01) ==
LOC: LAB.N 11:08
PROVIDERS: ATTEND Internal Medicine Cardiovascular Disease
DX: I50.22 Chronic systolic (congestive) heart failure (principal)
CPT/HCPCS: 36415; 80048